=== PATIENT | female | born 1945 | race Caucasian/White ===

== ENCOUNTER 2023-11-18 17:33 | Inpatient (IN) | payer MEDICARE, BC ==
[~2023-11-18] VITALS: Ht 157.5 cm; Wt 66.4 kg
[2023-11-18] MEDS ORDERED: LOSA1TAB36 PO (17:44)
[2023-11-18] MEDS ORDERED: ATEN25TA PO (17:44)
[2023-11-18 17:58] LABS: BASOPHILS # (AUTO) 0.1 K/UL (0.0-0.2); BASOPHILS % (AUTO) 0.8 % (0.0-2.0); EOSINOPHILS # (AUTO) 0.3 K/uL (0.0-0.7); EOSINOPHILS % (AUTO) 2.9 % (0.0-7.0); HEMATOCRIT 40.8 % (31.2-41.9); HEMOGLOBIN 14.1 g/dL (10.9-14.3); LYMPHOCYTES # (AUTO) 2.4 K/uL (0.8-4.8); MEAN CORPUSCULAR HEMOGLOBIN 28.7 uug (24.7-32.8); MEAN CORPUSCULAR HGB CONC 34 g/dL (32.3-35.6); MEAN CORPUSCULAR VOLUME 83.2 fL (75.5-95.3); MONOCYTES # (AUTO) 0.5 K/uL (0.1-1.30); MONOCYTES % (AUTO) 5.8 % (0.0-11.0); NEUTROPHILS # (AUTO) 5.9 K/uL (1.8-8.9); NEUTROPHILS % (AUTO) 64.5 % (38.5-71.5); PLATELET COUNT (AUTO) 266 K/uL (179-408); RED BLOOD CELL COUNT(AUTO) 4.91 MIL/uL (3.63-4.92); RED CELL DISTRIBUTION WIDTH 13.7 % (12.3-17.7); WHITE BLOOD COUNT (AUTO) 9.2 K/uL (3.8-11.8)
[2023-11-18] MEDS ORDERED: hydrALAZINE HCL 20 MG/1 ML VIAL ONE (18:04)
[2023-11-18] MEDS: hydrALAZINE HCL 20 MG/1 ML VIAL IV ONE (18:11)
[2023-11-18 18:26] LABS: CALCIUM 9.2 mg/dL (8.5-10.1); CARBON DIOXIDE 24 mmol/L (21-32); CHLORIDE 101 mmol/L (98-107); CREATININE 0.8 mg/dL (0.6-1.3); GLUCOSE 133 mg/dL (74-106); POTASSIUM 3.5 mmol/L (3.5-5.1); SODIUM SERUM 138 mmol/L (136-145); UREA NITROGEN, BLOOD 17 mg/dL (7-18)
[2023-11-18 18:39] LABS: ALANINE AMINOTRANSFERASE 23 U/L (14-59); ALBUMIN 3.9 g/dL (3.4-5.0); ALKALINE PHOSPHATASE 71 U/L (50-136); ASPARTATE AMINOTRANSFERASE 26 U/L (15-37); BILIRUBIN,TOTAL 0.3 mg/dL (0.2-1.0); NT-PRO BNP 121 pg/mL (0-125); TOTAL PROTEIN, SERUM 7.8 g/dL (6.4-8.2)
[2023-11-18 18:41] LABS: BILIRUBIN,DIRECT < 0.1 mg/dL (0.0-0.2)
[2023-11-19] VITALS (7 sets, daily range): BP systolic 130–209; BP diastolic 65–108; TEMP 97.8–98.6; O2SAT 94–98
[2023-11-19] MEDS ORDERED: ACETAMINOPHEN 325 MG TABLET PO PRN (03:30)
[2023-11-19] MEDS ORDERED: ZOLPIDEM 5 MG TABLET PO PRN (03:30)
[2023-11-19] MEDS ORDERED: ONDANSETRON 4 MG/2 ML VIAL IV PRN (03:30)
[2023-11-19 04:11] LABS: BASOPHILS # (AUTO) 0.1 K/UL (0.0-0.2); BASOPHILS % (AUTO) 0.9 % (0.0-2.0); EOSINOPHILS # (AUTO) 0.2 K/uL (0.0-0.7); EOSINOPHILS % (AUTO) 2.1 % (0.0-7.0); HEMATOCRIT 37.3 % (31.2-41.9); HEMOGLOBIN 12.9 g/dL (10.9-14.3); LYMPHOCYTES % (AUTO) 30.5 % (20.5-51.5); MEAN CORPUSCULAR HEMOGLOBIN 28.7 uug (24.7-32.8); MEAN CORPUSCULAR HGB CONC 35 g/dL (32.3-35.6); MEAN CORPUSCULAR VOLUME 82.7 fL (75.5-95.3); MONOCYTES # (AUTO) 0.8 K/uL (0.1-1.30); MONOCYTES % (AUTO) 7.7 % (0.0-11.0); NEUTROPHILS # (AUTO) 5.7 K/uL (1.8-8.9); NEUTROPHILS % (AUTO) 58.8 % (38.5-71.5); PLATELET COUNT (AUTO) 245 K/uL (179-408); RED BLOOD CELL COUNT(AUTO) 4.51 MIL/uL (3.63-4.92); RED CELL DISTRIBUTION WIDTH 13.9 % (12.3-17.7); WHITE BLOOD COUNT (AUTO) 9.8 K/uL (3.8-11.8)
[2023-11-19 05:13] LABS: ALBUMIN 3.3 g/dL (3.4-5.0); BILIRUBIN,TOTAL 0.5 mg/dL (0.2-1.0); CREATININE 0.9 mg/dL (0.6-1.3); MAGNESIUM 2.3 mg/dL (1.8-2.4); PHOSPHOROUS 4.7 mg/dL (2.5-4.9); POTASSIUM 3.4 mmol/L (3.5-5.1); TOTAL PROTEIN, SERUM 6.6 g/dL (6.4-8.2)
[2023-11-19] MEDS: hydrALAZINE HCL 25 MG TABLET PO PRN (05:36)
[2023-11-19] MEDS: PANTOPRAZOLE SODIUM 40 MG TABLET.DR PO SCH (06:10)
[2023-11-19 08:13] LABS: THYROID STIMULATING HORMONE 8.876 mIU/mL (0.358-3.740)
[2023-11-19] MEDS: HYDROCHLOROTHIAZIDE 12.5 MG CAPSULE PO ONE (08:38)
[2023-11-19] MEDS: ASPIRIN 325 MG TABLET PO ONE (08:39)
[2023-11-19] MEDS: LOSARTAN POTASSIUM 50 MG TABLET PO ONE (08:39)
[2023-11-19] MEDS: METOPROLOL TARTRATE 50 MG TABLET PO SCH (08:39)
[2023-11-19] MEDS ORDERED: AMLODIPINE 10 MG TABLET PO SCH (09:00)
[2023-11-19] MEDS ORDERED: LOSARTAN PO SCH (09:00)
[2023-11-19] MEDS ORDERED: HYDROCHLOROTHIAZIDE PO SCH (09:00)
[2023-11-19] MEDS ORDERED: ASPIRIN 81 MG TAB.CHEW PO SCH (09:00)
[2023-11-19] MEDS ORDERED: [UNRECOGNIZED DRUG - OTHER] PO SCH (09:00)
[2023-11-19] MEDS ORDERED: ESCI10TA PO (12:24)
[2023-11-19] MEDS ORDERED: LORA0.5T48 PO (12:31)
[2023-11-19] MEDS ORDERED: THYR30TA2 PO (12:33)
[2023-11-19] MEDS: hydrALAZINE HCL 20 MG/1 ML VIAL IV PRN (12:57)
[2023-11-19] MEDS: POTASSIUM CHLORIDE 20 MEQ TAB.PRT.SR PO SCH (13:28)
[2023-11-19] MEDS: LORAZEPAM 0.5 MG TABLET PO PRN (16:26)
[2023-11-19] MEDS: AMLODIPINE 5 MG TABLET PO SCH (20:11)
[2023-11-20] VITALS: BP 177/97; TEMP 98.2; O2SAT 97
[2023-11-20 08:00] VITALS: BP 164/82; TEMP 98.2; O2SAT 95
[2023-11-20] MEDS ORDERED: HYDROCHLOROTHIAZIDE 12.5 MG CAPSULE PO SCH (09:00)
[2023-11-20] MEDS ORDERED: ESCITALOPRAM OXALATE 10 MG TABLET NG SCH (09:00)
[2023-11-20] MEDS ORDERED: LOSARTAN POTASSIUM 50 MG TABLET PO SCH (09:00)
[2023-11-20] MEDS ORDERED: ASPIRIN 81 MG TAB.CHEW PO SCH (09:00)
[2023-11-20 12:00] VITALS: BP 164/72; TEMP 98.2; O2SAT 96
[2023-11-20] MEDS ORDERED: ESCI20TA PO (15:31)
[2023-11-20] MEDS ORDERED: LOSA1TAB42 PO (15:31)
[2023-11-20] MEDS ORDERED: ASPI81TA31 PO (15:31)
[2023-11-20] MEDS ORDERED: AMLO-212 PO (15:31)
[2023-11-20 16:19] LABS: BASOPHILS # (AUTO) 0.1 K/UL (0.0-0.2); BASOPHILS % (AUTO) 0.5 % (0.0-2.0); EOSINOPHILS # (AUTO) 0.2 K/uL (0.0-0.7); EOSINOPHILS % (AUTO) 1.5 % (0.0-7.0); HEMATOCRIT 40.3 % (31.2-41.9); HEMOGLOBIN 13.9 g/dL (10.9-14.3); LYMPHOCYTES % (AUTO) 28.4 % (20.5-51.5); MEAN CORPUSCULAR HEMOGLOBIN 28.7 uug (24.7-32.8); MEAN CORPUSCULAR HGB CONC 35 g/dL (32.3-35.6); MEAN CORPUSCULAR VOLUME 83.2 fL (75.5-95.3); MONOCYTES # (AUTO) 0.8 K/uL (0.1-1.30); MONOCYTES % (AUTO) 7.4 % (0.0-11.0); NEUTROPHILS # (AUTO) 6.6 K/uL (1.8-8.9); NEUTROPHILS % (AUTO) 62.2 % (38.5-71.5); PLATELET COUNT (AUTO) 308 K/uL (179-408); RED BLOOD CELL COUNT(AUTO) 4.85 MIL/uL (3.63-4.92); WHITE BLOOD COUNT (AUTO) 10.6 K/uL (3.8-11.8)
[2023-11-20 16:21] LABS: CALCIUM 9.3 mg/dL (8.5-10.1); CREATININE 0.9 mg/dL (0.6-1.3); POTASSIUM 3.8 mmol/L (3.5-5.1)
[2023-11-20 16:30] VITALS: BP 178/90; TEMP 98.2; O2SAT 97
[2023-11-20 16:57] VITALS: BP 178/90
[2023-11-21 01:29] LABS: THYROID STIMULATING HORMONE 7.448 mIU/mL (0.358-3.740)
[2023-11-21 08:11] LABS: CORTISOL 26.4 ug/dL (6.2-19.4)
[2023-11-21] MEDS ORDERED: SPIRONOLACTONE 25 MG TABLET PO SCH (09:00)
[2023-11-21] MEDS ORDERED: LOSARTAN POTASSIUM 50 MG TABLET PO SCH (09:00)
[2023-11-27 03:08] LABS: RENIN 0.28 ng/mL/hr (.)
== END 2023-11-20 16:50 | disposition home health service (06) | DRG 305 ==
LOC: ER 17:36 → TELE3 22:27
PROVIDERS: ADMIT Internal Medicine; ATTEND Nurse Practitioner Acute Care
DX: I16.9 Hypertensive crisis, unspecified (principal); I11.9 Hypertensive heart disease without heart failure; F41.0 Panic disorder [episodic paroxysmal anxiety]; E86.0 Dehydration; E03.8 Other specified hypothyroidism; R73.03 Prediabetes; E78.5 Hyperlipidemia, unspecified; Z79.899 Other long term (current) drug therapy; R79.89 Other specified abnormal findings of blood chemistry
CPT/HCPCS: 36415; 70450; 71045; 82088; 82533; 83735; 84100; 84244; 84443; 84480; 84484; 85025; 85730; 93005; 93307; A4606; A4663; G0378; J0360; J2405